=== PATIENT | female | born 1975 | race Caucasian/White ===

== ENCOUNTER 2025-04-07 06:29 | Day surgery (SDC) | payer OTHER, SELFPAY | END 2025-04-07 11:46 | disposition home or self-care (01) | LOC: GI 06:29 | PROVIDERS: ATTENDING PHYSICIAN Internal Medicine | DX: D12.0 Benign neoplasm of cecum (principal); D12.2 Benign neoplasm of ascending colon; D50.9 Iron deficiency anemia, unspecified; K29.50 Unspecified chronic gastritis without bleeding | CPT/HCPCS: 45380; 43239; 88305; 88342 ==